=== PATIENT | male | born 1995 | race Caucasian/White ===

== ENCOUNTER 2018-03-24 19:07 | Emergency (ER) | payer MEDICAID ==
--- NOTE | 2018-03-24 20:54 | RAD ---
THREE VIEWS RIGHT SHOULDER: 03/24/18 HISTORY: Fall. Right shoulder pain. AP internally, externally, and scapular Y-views right shoulder is obtained. Three views right shoulder demonstrate no evidence of right shoulder fractures, subluxations or bony lesions. IMPRESSION: Normal three views right shoulder. POS: [facility]
[2018-03-24] MEDS ORDERED: Ketorolac Tromethamine 60 MG/2 ML VIAL ONE (21:26)
== END 2018-03-24 21:35 | disposition home or self-care (01) ==
LOC: ERS 19:07
DX: S43.401A Unspecified sprain of right shoulder joint, initial encounter (principal); F31.9 Bipolar disorder, unspecified; F90.9 Attention-deficit hyperactivity disorder, unspecified type; Z79.899 Other long term (current) drug therapy; V43.62XA Car passenger injured in collision with other type car in traffic accident, initial encounter
CPT/HCPCS: 96372; J1885

== ENCOUNTER 2019-05-01 09:03 | Emergency (ER) | payer OTHER ==
[2019-05-01 09:41] LABS: #Eosinphils 0.2 thou/uL (0.0-0.7); #Lymphocytes 2.3 thou/uL (1.20-3.40); #Monocytes 0.5 thou/uL (0.11-0.59); #Neutrophils 6.5 thou/uL (1.40-6.50); %Basophils 0.5 % (0.0-1.0); %Eosinophils 1.8 % (0.0-10.0); %Lymphocytes 23.8 % (21.0-51.0); %Monocytes 5.3 % (0.0-10.0); %Neutrophils 68.5 % (42.0-75.0); Hemoglobin 14.5 g/dL (14.0-18.0); Mean Corpuscular HGB CONC 32.7 g/dL (32.0-36.0); Mean Corpuscular Volume 88.7 fL (78.0-98.0); Mean Platelet Volume 8.2 fL (7.4-10.4); Platelet Count 246 thou/uL (130-400); RBC Distribution Width 11.8 % (11.5-14.5); Red Blood Cell (RBC) Count 4.99 mill/uL (4.70-6.10); White Blood Cell (WBC) Count 9.5 thou/uL (4.8-10.8)
[2019-05-01] MEDS ORDERED: Ondansetron PF 4 MG/2 ML Vial ONE (09:48)
--- NOTE | 2019-05-01 09:57 | RAD ---
RADIOGRAPH CHEST 1 VIEW: DATE: 05/01/2019 HISTORY: 24-year-old male with cough FINDINGS: The visualized lung starks are clear. The cardiomediastinal silhouette and hilar shadows are normal. The lateral costophrenic angles are sharp. The osseous structures appear normal. There is no pneumothorax. IMPRESSION: Negative.
[2019-05-01 10:05] LABS: ALT (SGPT) 40 U/L (8-55); AST (SGOT) 20 U/L (5-34); Albumin 4.1 g/dL (3.5-5.0); Alkaline Phosphatase 88 U/L (40-150); Anion Gap 11 mmol/L (10-20); BUN (Urea Nitrogen) 11 mg/dL (8.9-20.6); Bilirubin, Total 0.2 mg/dL (0.2-1.2); Calc. Creatinine Clearance 0 mL/min (70-130); Calcium 9.2 mg/dL (7.8-10.44); Carbon Dioxide 27 mmol/L (22-29); Chloride 106 mmol/L (98-107); Estimated GFR-MDRD Greater than 90; Globulin 2.8 g/dL (2.4-3.5); Glucose 99 mg/dL (70-105); Lipase 18 U/L (8-78); Potassium 4.6 mmol/L (3.5-5.1); Protein, Total 6.9 g/dL (6.0-8.3); Sodium 139 mmol/L (136-145)
--- NOTE | 2019-05-01 10:48 | CT ---
HEAD CT WITHOUT CONTRAST: Date: 05/01/19 HISTORY: Syncope. COMPARISON: None. FINDINGS: No parenchymal hemorrhage. No extra-axial hematoma. No midline shift. Basilar cisterns are patent. Br ain volume, age-appropriate. Cortical lux-white matter differentiation preserved. No evidence of hyd rocephalus. Calvarium is intact. Adequate aeration of the sinuses and mastoid air cells. Minimal mucu s retention cyst in right maxillary sinus. IMPRESSION: No acute intracranial process. Further evaluation with nonemergent MRI of the brain if clinically wa rranted. POS: [facility]
[2019-05-01] MEDS ORDERED: Dexamethasone 10 MG/ML VIAL ONE (11:36)
--- NOTE | 2019-05-04 12:54 | EKG ---
Test Reason : SYNCOPE Blood Pressure : / mmHG Vent. Rate : 064 BPM Atrial Rate : 064 BPM P-R Int : 148 ms QRS Dur : 074 ms QT Int : 370 ms P-R-T Axes : 047 047 033 degrees QTc Int : 381 ms Normal sinus rhythm with sinus arrhythmia Normal ECG Confirmed by DEBBIE ALVARES, JERRELL ([id number]), movie editor TAMIKO LY ([id number]) on 05/04/2019 12:53:35 PM Referred By: Confirmed By:JERRELL LEWIS MD
== END 2019-05-01 11:46 | disposition home or self-care (01) ==
LOC: ERS 09:03
DX: R55 Syncope and collapse (principal); F31.9 Bipolar disorder, unspecified; F98.8 Other specified behavioral and emotional disorders with onset usually occurring in childhood and adolescence; F90.9 Attention-deficit hyperactivity disorder, unspecified type; E66.9 Obesity, unspecified; J45.909 Unspecified asthma, uncomplicated; F17.210 Nicotine dependence, cigarettes, uncomplicated; Z79.51 Long term (current) use of inhaled steroids; Z79.899 Other long term (current) drug therapy
CPT/HCPCS: 36415; 70450; 71045; 80053; 83690; 84146; 84484; 85025; 93005; 94640; 96361; 96374; J1100; J2405; J7620

== ENCOUNTER 2020-09-23 19:38 | Emergency (ER) | payer OTHER ==
[2020-09-23] MEDS ORDERED: Ketorolac Tromethamine 30 MG/ML VIAL ONE (20:50)
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
== END 2020-09-23 22:08 | disposition home or self-care (01) ==
LOC: ERS 19:38
DX: S63.501A Unspecified sprain of right wrist, initial encounter (principal); S40.011A Contusion of right shoulder, initial encounter; S80.02XA Contusion of left knee, initial encounter; S50.01XA Contusion of right elbow, initial encounter; E66.9 Obesity, unspecified; J45.909 Unspecified asthma, uncomplicated; F31.9 Bipolar disorder, unspecified; F90.9 Attention-deficit hyperactivity disorder, unspecified type; V68.5XXA Driver of heavy transport vehicle injured in noncollision transport accident in traffic accident, initial encounter; Z79.899 Other long term (current) drug therapy
CPT/HCPCS: 96372; J1885

== ENCOUNTER 2021-06-19 14:26 | Emergency (ER) | payer OTHER ==
[2021-06-19] MEDS ORDERED: Metoclopramide HCl 10 MG/2 ML VIAL ONE (16:20)
[2021-06-19] MEDS ORDERED: diphenhydrAMINE 50 MG/ML VIAL ONE (16:20)
== END 2021-06-19 17:50 | disposition home or self-care (01) ==
LOC: ERS 14:26
DX: U07.1 COVID-19 (principal); J45.909 Unspecified asthma, uncomplicated; Z79.899 Other long term (current) drug therapy
CPT/HCPCS: 71045; 93005; 96372; J1200; J2765